=== PATIENT | male | born 1985 | race Caucasian/White ===

== ENCOUNTER 2023-11-20 18:56 | Inpatient (IN) | payer MEDICAID ==
[~2023-11-20] VITALS: Ht 185.4 cm; Wt 129.3 kg
[~2023-11-20 18:56] MED LIST: CITA-144 PO; QUET200T PO
[2023-11-20 21:16] LABS: GLUCOMETER DEV NAME(LOC) POC.BV; POC SARS-COV2 AG, FIA NEGATIVE (NEGATIVE)
[2023-11-20 21:21] VITALS: BP 135/87; PULSE 89; RESP 18; TEMP 98.1
[2023-11-20] MEDS: LORazepam 2 MG TABLET PO PRN (22:40)
[2023-11-20 23:14] VITALS: BP 145/95; PULSE 81; RESP 18; TEMP 97.8; O2SAT 95
[2023-11-21 08:30] LABS: BASOPHILS % (AUTO) 0.5 % (0.0-2.0); EOSINOPHILS % (AUTO) 2.3 % (1.0-6.0); HEMATOCRIT 41.3 % (41-53); HEMOGLOBIN 13.9 g/dL (13.5-17.5); LYMPHOCYTES # (AUTO) 1.9 K/uL (1.0-4.8); LYMPHOCYTES % (AUTO) 31.1 % (22.0-44.0); MEAN CORPUSCULAR HEMOGLOBIN 30.8 pg (26.0-34.0); MEAN CORPUSCULAR HGB CONC 33.6 G/dL (31.0-37.0); MEAN CORPUSCULAR VOLUME 92 fL (80-100); MONOCYTES # (AUTO) 0.5 K/uL (0.1-1.0); NEUTROPHILS # (AUTO) 3.6 K/uL (1.8-7.7); NEUTROPHILS % (AUTO) 58.1 % (40.0-70.0); PLATELET COUNT (AUTO) 238 K/uL (150-450); RED CELL DISTRIBUTION WIDTH 12.6 % (11.5-14.5); WHITE BLOOD COUNT (AUTO) 6.2 K/uL (4.5-11.0)
[2023-11-21 08:37] LABS: HEMOGLOBIN A1C 5.4 % (3.8-5.6)
[2023-11-21 08:50] VITALS: BP 103/60; PULSE 60; RESP 16; TEMP 98; O2SAT 99
[2023-11-21 08:51] LABS: ALANINE AMINOTRANSFERASE 28 U/L (12-78); ALBUMIN 3.2 g/dL (3.4-5.0); ALKALINE PHOSPHATASE 51 U/L (46-116); ANION GAP 4 mmol/L (8-16); ASPARTATE AMINOTRANSFERASE 15 U/L (15-37); BILIRUBIN,TOTAL 0.3 mg/dL (0.1-1.0); CALCIUM, TOTAL 8.5 mg/dL (8.8-10.5); CARBON DIOXIDE 31 mmol/L (22-29); CHLORIDE 106 mmol/L (98-107); CHOL/HDL RATIO 3.6 (4.2-7.3); CHOLESTEROL 130 mg/dL (131-200); FREE T4 (FREE THYROXINE) 0.93 ng/dL (0.76-1.46); GLOMERULAR FILTR. RATE CALC > 60 mL/min (>60); GLUCOSE,RANDOM 86 mg/dL (70-110); HDL CHOLESTEROL 36 mg/dL (40-60); LDL CHOL (CALC.) 83 mg/dL (0-130); POTASSIUM 3.8 mmol/L (3.5-5.1); SODIUM SERUM 141 mmol/L (136-145); THYROID STIMULATING HORMONE 1.54 uIU/mL (0.36-3.74); TOTAL PROTEIN, SERUM 6.3 g/dL (6.4-8.2); TRIGLYCERIDES 53 mg/dL (15-150); UREA NITROGEN, BLOOD 17 mg/dL (7-18)
[2023-11-21] MEDS ORDERED: CloNIDine HCL 0.1 MG TABLET PO PRN (10:45)
[2023-11-21] MEDS ORDERED: OMEPRAZOLE 20 MG CAPSULE PO PRN (10:45)
[2023-11-21] MEDS ORDERED: BACITRACIN 28 GM OINTMENT TP PRN (10:45)
[2023-11-21] MEDS ORDERED: PETROLATUM,WHITE 28 GM JELLY TP PRN (10:45)
[2023-11-21] MEDS ORDERED: MAGNESIUM HYDROXIDE SUSPENSION 30 ML UDCUP PO PRN (10:45)
[2023-11-21] MEDS ORDERED: ACETAMINOPHEN 325 MG TABLET PO PRN (10:45)
[2023-11-21] MEDS ORDERED: ALBUTEROL SULFATE HFA 90 MCG/PUFF 8 GM INHALER IH PRN (10:45)
[2023-11-21] MEDS ORDERED: BENZOCAINE/MENTHOL LOZENGE PO PRN (10:45)
[2023-11-21] MEDS ORDERED: LOPERAMIDE HCL 2 MG CAPSULE PO PRN (10:45)
[2023-11-21] MEDS ORDERED: DOCUSATE SODIUM 100 MG CAPSULE PO PRN (10:45)
[2023-11-21] MEDS ORDERED: ONDANSETRON HCL 4 MG TABLET PO PRN (10:45)
[2023-11-21] MEDS: LITHIUM CARBONATE 300 MG CAPSULE PO SCH (16:12)
[2023-11-21] MEDS ORDERED: DIVALPROEX SODIUM 250 MG DR TABLET PO SCH (17:00)
[2023-11-21 20:37] VITALS: BP 128/78; PULSE 93; RESP 18; TEMP 97.8; O2SAT 97
[2023-11-21] MEDS: ZOLPIDEM TARTRATE 10 MG TABLET PO PRN (22:29)
[2023-11-22 08:33] VITALS: BP 114/59; PULSE 64; RESP 18; TEMP 97.9; O2SAT 97
[2023-11-22 20:14] VITALS: BP 128/84; PULSE 82; RESP 18; TEMP 98.3; O2SAT 97
[2023-11-23 08:30] VITALS: BP 117/66; PULSE 54; RESP 18; TEMP 96.9; O2SAT 96
[2023-11-23 08:33] LABS: APPEARANCE,URINE CLEAR (CLEAR); BILIRUBIN,URINE NEGATIVE (NEGATIVE); COLOR,URINE LIGHT YELLOW (YELLOW); GLUCOSE, URINE (UA) NEGATIVE (NEGATIVE); KETONES,URINE NEGATIVE (NEGATIVE); LEUKOCYTE ESTERASE ,URINE NEGATIVE (NEGATIVE); NITRATE,URINE NEGATIVE (NEGATIVE); OCCULT BLOOD,URINE NEGATIVE (NEGATIVE); PROTEIN,URINE NEGATIVE (NEGATIVE); SPECIFIC GRAVITIY, URINE 1.013 (1.003-1.030); UROBILINOGEN,URINE <=1.0 mg/dL (<=1.0)
[2023-11-23 08:38] LABS: ALCOHOL, URINE DRUG SCREEN NEGATIVE (NEGATIVE); AMPHET/METH SCREEN,URINE NEGATIVE (NEGATIVE); BARBITURATE SCREEN, URINE NEGATIVE (NEGATIVE); BENZODIAZEPINES SCREEN,URINE NEGATIVE (NEGATIVE); CANNABINOID SCREEN,URINE NEGATIVE (NEGATIVE); COCAINE SCREEN,URINE NEGATIVE (NEGATIVE); METHADONE SCREEN, URINE NEGATIVE (NEGATIVE); OPIATE SCREEN,URINE NEGATIVE (NEGATIVE); PHENCYCLIDINE SCREEN,URINE NEGATIVE (NEGATIVE)
[2023-11-23] MEDS: DIVALPROEX SODIUM 500 MG DR TABLET PO SCH (09:44)
[2023-11-23 20:28] VITALS: BP 125/70; PULSE 80; RESP 17; TEMP 98.9; O2SAT 96
[2023-11-24 08:17] VITALS: BP 114/60; PULSE 75; RESP 18; TEMP 97.8; O2SAT 95
[2023-11-24 18:02] VITALS: BP 118/53; RESP 18; O2SAT 96
[2023-11-24 20:31] VITALS: BP 138/65; PULSE 96; RESP 18; TEMP 97.8; O2SAT 96
[2023-11-25 08:33] VITALS: BP 100/62; PULSE 69; RESP 18; TEMP 97.2; O2SAT 97
[2023-11-25 09:17] LABS: LITHIUM 0.3 mmol/L (0.60-1.20)
[2023-11-25] MEDS: HydrOXYzine PAMOATE 25 MG CAPSULE PO SCH (13:21)
[2023-11-25 20:35] VITALS: BP 130/75; PULSE 80; RESP 18; TEMP 97.3; O2SAT 100
[2023-11-26 08:58] VITALS: BP 100/60; PULSE 65; RESP 18; TEMP 97.5; O2SAT 96
[2023-11-26 18:13] VITALS: RESP 18; O2SAT 96
[2023-11-26] MEDS: IBUPROFEN 600 MG TABLET PO PRN (18:13)
[2023-11-26 19:13] VITALS: RESP 8; O2SAT 96
[2023-11-26 20:22] VITALS: BP 125/77; PULSE 74; RESP 16; TEMP 98.1; O2SAT 96
[2023-11-27 08:50] VITALS: BP 125/61; PULSE 66; RESP 17; TEMP 98.3; O2SAT 95
[2023-11-27] MEDS: DIVALPROEX SODIUM 500 MG DR TABLET PO SCH (15:04)
[2023-11-27 20:12] VITALS: BP 121/65; PULSE 69; RESP 18; TEMP 98
[2023-11-28 08:54] VITALS: BP 120/70; PULSE 60; RESP 17; TEMP 98; O2SAT 94
[2023-11-28] MEDS: MAG HYDROX/ALUMINUM HYD/SIMETH ES 30 ML SUSPENSION UDCUP PO PRN (16:30)
[2023-11-28 20:00] VITALS: BP 122/70; PULSE 83; RESP 20; TEMP 97.8; O2SAT 100
[2023-11-29 09:03] VITALS: BP 102/56; PULSE 59; RESP 18; TEMP 97.6; O2SAT 93
[2023-11-29] MEDS: HALOPERIDOL 5 MG TABLET PO PRN (10:51)
[2023-11-29 20:28] VITALS: BP 117/76; PULSE 73; RESP 17; TEMP 97.4; O2SAT 98
[2023-11-30 08:38] VITALS: BP 119/60; PULSE 66; RESP 16; TEMP 98.5; O2SAT 95
[2023-11-30 20:28] VITALS: BP 126/86; PULSE 114; RESP 18; TEMP 97.4; O2SAT 97
[2023-12-01 08:35] VITALS: BP 106/59; PULSE 69; RESP 17; TEMP 98; O2SAT 94
[2023-12-01 20:38] VITALS: BP 141/94; PULSE 79; RESP 20; TEMP 97.7; O2SAT 94
[2023-12-02 08:29] VITALS: BP 95/61; PULSE 60; RESP 17; TEMP 97.8; O2SAT 95
[2023-12-02 09:08] VITALS: BP 126/86; PULSE 70; RESP 18; TEMP 97.4; O2SAT 93
[2023-12-02 20:13] VITALS: BP 127/79; PULSE 78; RESP 20; TEMP 97.6; O2SAT 94
[2023-12-03 09:02] VITALS: BP 118/67; PULSE 65; RESP 18; TEMP 96.6; O2SAT 96
[2023-12-03 21:30] VITALS: BP 129/99; PULSE 78; RESP 16; TEMP 98; O2SAT 95
[2023-12-04 08:38] VITALS: BP 128/75; PULSE 71; RESP 18; TEMP 97.1; O2SAT 93
[2023-12-04 09:43] LABS: LITHIUM 0.37 mmol/L (0.60-1.20)
[2023-12-04 21:00] VITALS: BP 128/70; PULSE 80; RESP 18; TEMP 96.8; O2SAT 95
[2023-12-05 09:20] VITALS: BP 125/70; PULSE 61; RESP 18; TEMP 96.9; O2SAT 98
[2023-12-05] MEDS ORDERED: LITH300C3 PO (13:18)
[2023-12-05] MEDS ORDERED: DIVA-112 PO (13:18)
[2023-12-05] MEDS ORDERED: HYDR-4808 PO (13:19)
== END 2023-12-05 14:00 | disposition home or self-care (01) | DRG 750 ==
LOC: B2S 21:25
PROVIDERS: ADMIT Psychiatry & Neurology Psychiatry; ATTEND Psychiatry & Neurology Psychiatry
PROC: GZHZZZZ Group Psychotherapy (ICD-10-PCS; principal; 2023-11-21)
PROC: GZ58ZZZ Individual Psychotherapy, Cognitive-Behavioral (ICD-10-PCS; 2023-11-21)
DX: F25.9 Schizoaffective disorder, unspecified (principal); R45.851 Suicidal ideations; F32.A Depression, unspecified; E66.9 Obesity, unspecified; F41.9 Anxiety disorder, unspecified; F14.10 Cocaine abuse, uncomplicated; F15.10 Other stimulant abuse, uncomplicated; G47.00 Insomnia, unspecified; K59.00 Constipation, unspecified; Z20.822 Contact with and (suspected) exposure to COVID-19; J44.9 Chronic obstructive pulmonary disease, unspecified; F17.200 Nicotine dependence, unspecified, uncomplicated; Z79.899 Other long term (current) drug therapy; Z59.02 Unsheltered homelessness; Z68.37 Body mass index [BMI] 37.0-37.9, adult
CPT/HCPCS: 80053; 80061; 80164; 80178; 80307; 81003; 83036; 84436; 84439; 84443; 85025; 86592